=== PATIENT | female | born 1935 | race Caucasian/White ===

== ENCOUNTER 2016-10-15 14:37 | Outpatient (CLI) | payer MEDICARE | END 2016-10-15 14:38 | disposition home or self-care (01) | DX: Z12.31 Encounter for screening mammogram for malignant neoplasm of breast (principal); Z80.3 Family history of malignant neoplasm of breast ==

== ENCOUNTER 2016-12-03 08:12 | Outpatient (CLI) | payer MEDICARE | END 2016-12-03 08:13 | disposition home or self-care (01) | DX: E78.5 Hyperlipidemia, unspecified (principal); E03.9 Hypothyroidism, unspecified; D50.9 Iron deficiency anemia, unspecified ==

== ENCOUNTER 2017-02-23 11:17 | Outpatient (CLI) | payer MEDICARE ==
--- NOTE | 2017-02-23 18:24 | Ultrasound Report ---
EXAM: ANKLE-BRACHIAL INDEX. EXAM DATE: 02/23/2017 12:26 p.m. CLINICAL HISTORY: Left calf pain. COMPARISON: None. TECHNIQUE: Real time, Doppler ultrasound imaging of the lower extremities was performed. Selected sta tic images were submitted for interpretation. FINDINGS: RIGHT Brachial Systolic BP: 167/60 mmHg. Posterior Tibial Systolic BP: 138/84 mmHg. Anterior Tibial Systolic BP 164/45 mmHg. LEFT Brachial Systolic BP: 166/67 mmHg. Posterior Tibial Systolic BP: 149/80 mmHg. Anterior Tibial Systolic BP: 159/54 mmHg. IMPRESSION: Right ankle-brachial index is 0.98. Left ankle-brachial index is 0.95. Borderline abnormal bilateral DANA measurements. [facility] Referring Provider Line: [phone] SITE ID: [id number]
== END 2017-02-23 11:18 | disposition home or self-care (01) ==
LOC: DI 11:17
PROVIDERS: ATTEND Physician Assistant Medical
DX: M79.622 Pain in left upper arm (principal)
CPT/HCPCS: 93922

== ENCOUNTER 2018-04-07 08:06 | Outpatient (CLI) | payer MEDICARE ==
[2018-04-07 10:40] LABS: BASOPHILS # (AUTO) 0.1 10^3/uL (0.0-0.1); BASOPHILS % (AUTO) 1.1 %; EOSINOPHILS # (AUTO) 0.3 10^3/uL (0.0-0.7); EOSINOPHILS % (AUTO) 5.2 %; HGB - HEMOGLOBIN 10.6 g/dL (12.0-16.0); LYMPHOCYTES # (AUTO) 1.1 10^3/uL (1.5-3.5); LYMPHOCYTES % (AUTO) 19.1 %; MEAN CORPUSCULAR HEMOGLOBIN 31.1 pg (27.0-31.0); MEAN CORPUSCULAR HGB CONC 33.4 g/dL (32.0-36.0); MEAN CORPUSCULAR VOLUME 93.2 fL (81.0-99.0); MEAN PLATELET VOLUME 8.7 fL (7.9-10.8); MONOCYTES # (AUTO) 0.6 10^3/uL (0.0-1.0); MONOCYTES % (AUTO) 9.8 %; NEUTROPHILS # (AUTO) 3.8 10^3/uL (1.5-6.6); NEUTROPHILS % (AUTO) 64.8 %; PLT - PLATELET COUNT 257 10^3/uL (130-450); RED BLOOD COUNT 3.42 10^6/uL (4.20-5.40); WHITE BLOOD COUNT 5.8 x10^3/uL (4.8-10.8)
[2018-04-07 11:09] LABS: ALBUMIN 3.4 g/dL (3.2-5.5); ALBUMIN/GLOBULIN RATIO 0.9 (1.0-2.2); ALKALINE PHOSPHATASE 56 IU/L (42-121); ALT ALANINE AMINOTRANSFERASE 15 IU/L (10-60); AST ASPARTATE AMINOTRANSFERASE 20 IU/L (10-42); BILIRUBIN,TOTAL 0.5 mg/dL (0.2-1.0); BUN - BLOOD UREA NITROGEN 71 mg/dL (6-20); CALCIUM 9.5 mg/dL (8.5-10.3); CARBON DIOXIDE - CO2 22 mmol/L (21-32); CHLORIDE 104 mmol/L (101-111); CHOL/HDL RATIO 4.5 (<4.4); CHOLESTEROL 227 mg/dL; GFR - MDRD 24 (>89); GLUCOSE 95 mg/dL (70-100); HDL CHOLESTEROL 50 mg/dL; LDL CHOLESTEROL,CALCULATED 141 mg/dL; LDL/HDL RATIO 2.8 (<4.4); SODIUM 132 mmol/L (135-145); VLDL CHOLESTEROL 36 mg/dL
[2018-04-07 11:18] LABS: THYROID STIMULATING HORMONE 0.61 uIU/mL (0.34-5.60)
[2018-04-07 16:37] LABS: % IRON SATURATION 23 % (20-50); IRON 72 ug/dL (28-170); TOTAL IRON BINDING CAPACITY 316 ug/dL (250-450); TRANSFERRIN 226 mg/dL (192-382)
[2018-04-07 16:48] LABS: FERRITIN 77.2 ng/mL (11.0-306.8)
== END 2018-04-07 08:07 | disposition home or self-care (01) ==
LOC: LAB.F 08:06
PROVIDERS: ATTEND Physician Assistant Medical
DX: E78.5 Hyperlipidemia, unspecified (principal); E03.9 Hypothyroidism, unspecified; D50.9 Iron deficiency anemia, unspecified
CPT/HCPCS: 36415; 80053; 80061; 82728; 83540; 83721; 84443; 84466; 85025

== ENCOUNTER 2018-05-18 08:00 | Outpatient (CLI) | payer MEDICARE | END 2018-05-18 08:01 | disposition home or self-care (01) | LOC: LAB 08:00 | PROVIDERS: ATTEND Physician Assistant Medical | DX: D50.9 Iron deficiency anemia, unspecified (principal) ==

== ENCOUNTER 2018-05-19 08:00 | Outpatient (CLI) | payer MEDICARE | END 2018-05-19 08:01 | disposition home or self-care (01) | LOC: LAB 08:00 | PROVIDERS: ATTEND Physician Assistant Medical | DX: D50.9 Iron deficiency anemia, unspecified (principal) ==

== ENCOUNTER 2018-05-20 08:00 | Outpatient (CLI) | payer MEDICARE | END 2018-05-20 08:01 | disposition home or self-care (01) | LOC: LAB.R 08:00 | PROVIDERS: ATTEND Physician Assistant Medical | DX: D50.9 Iron deficiency anemia, unspecified (principal) | CPT/HCPCS: 82270 ==

== ENCOUNTER 2018-05-21 09:10 | Outpatient (CLI) | payer MEDICARE ==
[2018-05-21 12:21] LABS: BASOPHILS # (AUTO) 0.1 10^3/uL (0.0-0.1); EOSINOPHILS # (AUTO) 0.3 10^3/uL (0.0-0.7); EOSINOPHILS % (AUTO) 4.2 %; HGB - HEMOGLOBIN 10.2 g/dL (12.0-16.0); LYMPHOCYTES % (AUTO) 15.5 %; MEAN CORPUSCULAR HEMOGLOBIN 31.4 pg (27.0-31.0); MEAN CORPUSCULAR VOLUME 92.3 fL (81.0-99.0); MEAN PLATELET VOLUME 8.9 fL (7.9-10.8); MONOCYTES # (AUTO) 0.5 10^3/uL (0.0-1.0); MONOCYTES % (AUTO) 8.6 %; NEUTROPHILS # (AUTO) 4.4 10^3/uL (1.5-6.6); NEUTROPHILS % (AUTO) 70.7 %; PLT - PLATELET COUNT 241 10^3/uL (130-450); RED BLOOD COUNT 3.25 10^6/uL (4.20-5.40); RED CELL DISTRIBUTION WIDTH 13.2 % (12.0-15.0); WHITE BLOOD COUNT 6.2 x10^3/uL (4.8-10.8)
== END 2018-05-21 09:11 | disposition home or self-care (01) ==
LOC: LAB.WCP 09:10
PROVIDERS: ATTEND Physician Assistant Medical
DX: I10 Essential (primary) hypertension (principal); D50.9 Iron deficiency anemia, unspecified
CPT/HCPCS: 36415; 82088; 84244; 85025

== ENCOUNTER 2018-07-14 09:37 | Outpatient (CLI) | payer MEDICARE | END 2018-07-14 09:38 | disposition home or self-care (01) | LOC: LAB.F 09:37 | PROVIDERS: ATTEND Physician Assistant Medical | DX: E78.5 Hyperlipidemia, unspecified (principal); I10 Essential (primary) hypertension ==

== ENCOUNTER 2018-07-15 07:31 | Outpatient (CLI) | payer MEDICARE ==
[2018-07-15 11:32] LABS: CALCIUM 9.4 mg/dL (8.5-10.3); CREATININE 2.4 mg/dL (0.4-1.0); FERRITIN 79.3 ng/mL (11.0-306.8)
== END 2018-07-15 07:32 | disposition home or self-care (01) ==
LOC: LAB.F 07:31
PROVIDERS: ATTEND Physician Assistant Medical
DX: D50.9 Iron deficiency anemia, unspecified (principal)
CPT/HCPCS: 36415; 80048; 82607; 82728; 82746; 83540; 84466

== ENCOUNTER 2018-08-21 07:14 | Outpatient (CLI) | payer MEDICARE ==
[2018-08-21 12:04] LABS: HGB - HEMOGLOBIN 10.2 g/dL (12.0-16.0); MEAN CORPUSCULAR HEMOGLOBIN 31.3 pg (27.0-31.0); MEAN CORPUSCULAR VOLUME 91.9 fL (81.0-99.0); MEAN PLATELET VOLUME 8.1 fL (7.9-10.8); RED BLOOD COUNT 3.28 10^6/uL (4.20-5.40); RED CELL DISTRIBUTION WIDTH 13.3 % (12.0-15.0); WHITE BLOOD COUNT 8.5 x10^3/uL (4.8-10.8)
== END 2018-08-21 07:15 | disposition home or self-care (01) ==
LOC: LAB.F 07:14
PROVIDERS: ATTEND Physician Assistant Medical
DX: E78.5 Hyperlipidemia, unspecified (principal); D63.1 Anemia in chronic kidney disease; D70.9 Neutropenia, unspecified; R80.9 Proteinuria, unspecified
CPT/HCPCS: 36415; 82570; 84156; 85027

== ENCOUNTER 2018-09-09 14:38 | Outpatient (CLI) | payer MEDICARE ==
--- NOTE | 2018-09-10 15:02 | CT Report ---
Reason: ADRENAL NODULE Procedure Date: 09/09/2018 Accession Number: [id number] / [id number] Procedure: CT - Abdomen W/O CPT Code: FULL RESULT: EXAM: CT ABDOMEN EXAM DATE: 09/09/2018 02:59 PM. CLINICAL HISTORY: Adrenal nodule. High creatinine; unable to use IV contrast. COMPARISON: Abdomen 01/03/2009 9:53 AM, Abdomen 11/27/2014 11:30 AM. TECHNIQUE: Routine helical CT imaging was performed through the abdomen. IV contrast: 0 cc Enteric contrast: No. Reconstruction: Coronal and sagittal. In accordance with CT protocol optimization, one or more of the following dose reduction techniques were utilized for this exam: automated exposure control, adjustment of mA and/or KV based on patient size, or use of iterative reconstructive technique. FINDINGS: Lung Bases: Unremarkable. Liver: No focal hepatic abnormality noted on noncontrast images. Gallbladder/Bile Ducts: There is a dependent 8 mm radiodense stone near the gallbladder neck with smaller dependent stones; appearance is little changed from 2008. There is no wall thickening or pericholecystic fluid/inflammation. No biliary ductal dilatation. Spleen: Normal. Pancreas: Normal. Adrenal Glands: There is a stable 2 cm oval heterogeneous isodense and hypodense mass in the left adrenal gland measuring 2 cm in greatest extent. Hounsfield unit measurements vary between soft tissue and fat with lowest measurements -11.2. Right adrenal gland appears normal. Kidneys: Stable operative changes after right nephrectomy. No focal abnormalities of the left kidney. Peritoneal Cavity/Bowel: Normal. No free fluid, free air or adenopathy. No masses or acute inflammatory process. Appendix is not specifically identified. Vasculature: Atherosclerotic deposition without aneurysmal dilatation. Bones: Multilevel degenerative disk space narrowing and marginal osteophyte of the lumbar spine, commensurate with age. Other: None. IMPRESSION: 1. Stable fat-containing 2 cm left adrenal nodule consistent with adenoma. 2. Cholelithiasis without evidence of cholecystitis. 3. Stable right nephrectomy changes. [facility]
== END 2018-09-09 14:39 | disposition home or self-care (01) ==
LOC: DI 14:38
PROVIDERS: ATTEND Internal Medicine Nephrology
DX: E27.8 Other specified disorders of adrenal gland (principal); K80.20 Calculus of gallbladder without cholecystitis without obstruction; Z90.5 Acquired absence of kidney
CPT/HCPCS: 74150

== ENCOUNTER 2018-10-14 14:41 | Outpatient (CLI) | payer MEDICARE ==
[2018-10-14 18:40] LABS: CALCIUM 9.4 mg/dL (8.5-10.3); CREATININE 2.3 mg/dL (0.4-1.0); PHOSPHORUS 5.3 mg/dL (2.5-4.6)
== END 2018-10-14 14:42 | disposition home or self-care (01) ==
LOC: LAB.F 14:41
PROVIDERS: ATTEND Internal Medicine Nephrology
DX: N05.9 Unspecified nephritic syndrome with unspecified morphologic changes (principal); E83.30 Disorder of phosphorus metabolism, unspecified; N25.81 Secondary hyperparathyroidism of renal origin; R80.9 Proteinuria, unspecified; D47.2 Monoclonal gammopathy; I50.32 Chronic diastolic (congestive) heart failure
CPT/HCPCS: 36415; 80048; 81599; 83880; 83883; 83970; 84100; 84155; 84165

== ENCOUNTER 2018-12-05 15:18 | Outpatient (CLI) | payer MEDICARE ==
[2018-12-05 18:09] LABS: BASOPHILS % (AUTO) 0.7 %; EOSINOPHILS # (AUTO) 0.3 10^3/uL (0.0-0.7); EOSINOPHILS % (AUTO) 4.3 %; HGB - HEMOGLOBIN 9.4 g/dL (12.0-16.0); LYMPHOCYTES % (AUTO) 17.3 %; MEAN CORPUSCULAR HEMOGLOBIN 31.4 pg (27.0-31.0); MEAN CORPUSCULAR HGB CONC 33.2 g/dL (32.0-36.0); MEAN CORPUSCULAR VOLUME 94.3 fL (81.0-99.0); MEAN PLATELET VOLUME 8.8 fL (7.9-10.8); MONOCYTES # (AUTO) 0.6 10^3/uL (0.0-1.0); MONOCYTES % (AUTO) 10.3 %; NEUTROPHILS # (AUTO) 3.9 10^3/uL (1.5-6.6); NEUTROPHILS % (AUTO) 67.4 %; PLT - PLATELET COUNT 222 10^3/uL (130-450); RED BLOOD COUNT 2.99 10^6/uL (4.20-5.40); RED CELL DISTRIBUTION WIDTH 13.4 % (12.0-15.0); WHITE BLOOD COUNT 5.8 x10^3/uL (4.8-10.8)
[2018-12-05 18:49] LABS: FERRITIN 1046.3 ng/mL (11.0-306.8)
[2018-12-05 19:19] LABS: CALCIUM 8.9 mg/dL (8.5-10.3); CREATININE 2.4 mg/dL (0.4-1.0)
== END 2018-12-05 15:19 | disposition home or self-care (01) ==
LOC: LAB.F 15:18
PROVIDERS: ATTEND Internal Medicine Nephrology
DX: N05.9 Unspecified nephritic syndrome with unspecified morphologic changes (principal); D70.9 Neutropenia, unspecified; D63.1 Anemia in chronic kidney disease; D50.0 Iron deficiency anemia secondary to blood loss (chronic); D64.9 Anemia, unspecified; D47.2 Monoclonal gammopathy
CPT/HCPCS: 36415; 80048; 81599; 82607; 82728; 82746; 83540; 84466; 85025

== ENCOUNTER 2018-12-08 13:24 | Outpatient (CLI) | payer MEDICARE | END 2018-12-08 13:25 | disposition home or self-care (01) | LOC: LAB.F 13:24 | PROVIDERS: ATTEND Internal Medicine Nephrology | DX: D47.2 Monoclonal gammopathy (principal) | CPT/HCPCS: 36415; 81599; 82784 ==

== ENCOUNTER 2019-01-06 15:10 | Outpatient (CLI) | payer MEDICARE ==
[2019-01-06 18:25] LABS: CALCIUM 8.9 mg/dL (8.5-10.3); CREATININE 2.3 mg/dL (0.4-1.0)
[2019-01-08 20:01] LABS: ANA SCREEN POSITIVE (NEGATIVE)
[2019-01-08 21:47] LABS: ANCA SCREEN NEGATIVE (NEGATIVE)
[2019-01-08 23:31] LABS: GLOM BASEMENT MEMBRANE AB IGG <1.0 AI (<1.0)
== END 2019-01-06 15:11 | disposition home or self-care (01) ==
LOC: LAB.F 15:10
PROVIDERS: ATTEND Internal Medicine Nephrology
DX: L93.2 Other local lupus erythematosus (principal); M31.30 Wegener's granulomatosis without renal involvement; N00.9 Acute nephritic syndrome with unspecified morphologic changes; I50.32 Chronic diastolic (congestive) heart failure; N05.9 Unspecified nephritic syndrome with unspecified morphologic changes
CPT/HCPCS: 36415; 80048; 83520; 83880; 86021; 86038

== ENCOUNTER 2019-01-14 08:00 | Outpatient (CLI) | payer MEDICARE ==
[2019-01-14 19:28] LABS: H. PYLORIS ANTIGEN STL NEGATIVE (Negative)
== END 2019-01-14 23:59 | disposition home or self-care (01) ==
LOC: LAB.R 08:00
PROVIDERS: ATTEND Physician Assistant Medical
DX: K52.9 Noninfective gastroenteritis and colitis, unspecified (principal)
CPT/HCPCS: 81599; 83630; 87045; 87046; 87177; 87209; 87329; 87338; 87493

== ENCOUNTER 2019-03-17 08:00 | Outpatient (CLI) | payer MEDICARE ==
[2019-03-17 18:19] LABS: CALCIUM 9.2 mg/dL (8.5-10.3); CREATININE 2.7 mg/dL (0.4-1.0)
[2019-03-17 18:31] LABS: CREATININE,URINE 64.8 mg/dL; PROTEIN/CREATININE RATIO,URINE 2.4 (<=0.2)
[2019-03-19 12:48] LABS: COMPLEMENT COMPONENT C3C 124 mg/dL; COMPLEMENT COMPONENT C4C 32 mg/dL
[2019-03-19 19:07] LABS: ANA SCREEN POSITIVE (NEGATIVE)
== END 2019-03-17 23:59 | disposition home or self-care (01) ==
LOC: LAB.F 08:00
PROVIDERS: ATTEND Internal Medicine Nephrology
DX: N05.9 Unspecified nephritic syndrome with unspecified morphologic changes (principal); L93.2 Other local lupus erythematosus; I50.32 Chronic diastolic (congestive) heart failure; D89.89 Other specified disorders involving the immune mechanism, not elsewhere classified; D80.9 Immunodeficiency with predominantly antibody defects, unspecified
CPT/HCPCS: 36415; 80048; 82570; 83880; 84156; 86038; 86160

== ENCOUNTER 2019-03-27 12:19 | Outpatient (CLI) | payer MEDICARE | END 2019-03-27 12:20 | disposition home or self-care (01) | LOC: LAB 12:19 | PROVIDERS: ATTEND Internal Medicine Nephrology | DX: M31.30 Wegener's granulomatosis without renal involvement (principal) | CPT/HCPCS: 36415; 81599; 86021 ==

== ENCOUNTER 2019-04-24 | Outpatient (CLI) | payer MEDICARE | END 2019-04-24 10:51 | disposition home or self-care (01) ==

== ENCOUNTER 2019-06-02 13:01 | Outpatient (CLI) | payer MEDICARE ==
[2019-06-02 18:44] LABS: CALCIUM 9.4 mg/dL (8.5-10.3)
== END 2019-06-02 13:02 | disposition home or self-care (01) ==
LOC: LAB.S 13:01
PROVIDERS: ATTEND Internal Medicine Nephrology
DX: N05.9 Unspecified nephritic syndrome with unspecified morphologic changes (principal); D70.9 Neutropenia, unspecified
CPT/HCPCS: 36415; 80048; 81599

== ENCOUNTER 2019-06-04 08:59 | Outpatient (CLI) | payer MEDICARE | END 2019-06-04 09:00 | disposition home or self-care (01) | LOC: LAB.S 08:59 | PROVIDERS: ATTEND Internal Medicine Nephrology | DX: N05.9 Unspecified nephritic syndrome with unspecified morphologic changes (principal); D70.9 Neutropenia, unspecified | CPT/HCPCS: 83036; 85018 ==

== ENCOUNTER 2019-07-02 11:24 | Outpatient (CLI) | payer MEDICARE ==
[2019-07-02 18:01] LABS: CALCIUM 8.3 mg/dL (8.5-10.3); CREATININE 3.7 mg/dL (0.4-1.0)
== END 2019-07-02 11:25 | disposition home or self-care (01) ==
LOC: LAB.S 11:24
PROVIDERS: ATTEND Internal Medicine Nephrology
DX: N05.9 Unspecified nephritic syndrome with unspecified morphologic changes (principal); D70.9 Neutropenia, unspecified
CPT/HCPCS: 36415; 80048; 83036; 85018

== ENCOUNTER 2019-07-10 13:26 | Outpatient (CLI) | payer MEDICARE ==
--- NOTE | 2019-07-10 16:12 | XRAY Report ---
Reason: DYSPNEA Procedure Date: 07/10/2019 Accession Number: [id number] / [id number] Procedure: XR - Chest 2 View X-Ray CPT Code: 14166 FULL RESULT: EXAM: CHEST RADIOGRAPHY EXAM DATE: 07/10/2019 02:28 PM. CLINICAL HISTORY: Dyspnea. COMPARISON: XR CHEST PA AND LAT 05/30/2007 10:24 AM. TECHNIQUE: 2 views. FINDINGS: Lungs/Pleura: Bilateral airway thickening can be seen in the setting of bronchiolitis or reactive airways disease. No focal lung parenchymal consolidation identified to suggest superimposed pneumonia. Mediastinum: Interval progression of calcifications of the aorta and interval development of mild cardiomegaly. Other: None. IMPRESSION: Interval development of bronchial wall thickening predominantly centrally. Interval development of mild cardiomegaly. [facility]
[2019-07-11 11:01] LABS: HEPATITIS B SURFACE ANTIGEN NON-REACTIVE (NON-REACTIVE)
[2019-07-11 11:33] LABS: HEPATITIS C ANTIBODY NON-REACTIVE (NON-REACTIVE)
== END 2019-07-10 13:27 | disposition home or self-care (01) ==
LOC: LAB 13:26 → DI 13:27
PROVIDERS: ATTEND Internal Medicine Nephrology
DX: R91.8 Other nonspecific abnormal finding of lung field (principal); I51.7 Cardiomegaly; B19.10 Unspecified viral hepatitis B without hepatic coma; B17.10 Acute hepatitis C without hepatic coma
CPT/HCPCS: 36415; 71046; 86317; 86704; 86803; 87340

== ENCOUNTER 2020-01-03 12:07 | Outpatient (CLI) | payer MEDICARE, OTHER | END 2020-01-03 23:59 | disposition short-term general hospital (02) | LOC: EMS 12:07 | PROVIDERS: ATTEND Surgery | DX: M25.551 Pain in right hip (principal); W18.00XA Striking against unspecified object with subsequent fall, initial encounter; Y92.009 Unspecified place in unspecified non-institutional (private) residence as the place of occurrence of the external cause | CPT/HCPCS: A0425; A0429 ==

== ENCOUNTER 2020-04-07 07:45 | Outpatient (CLI) | payer MEDICARE, OTHER ==
[2020-04-07 08:17] LABS: CHOLESTEROL 207 mg/dL; HDL CHOLESTEROL 52 mg/dL; LDL CHOLESTEROL,CALCULATED 131 mg/dL; LDL/HDL RATIO 2.5 (<4.4); VLDL CHOLESTEROL 24 mg/dL
== END 2020-04-07 07:46 | disposition home or self-care (01) ==
LOC: LAB 07:45
PROVIDERS: ATTEND Physician Assistant Medical
DX: E78.5 Hyperlipidemia, unspecified (principal); E03.9 Hypothyroidism, unspecified
CPT/HCPCS: 36415; 80061; 83721; 84443

== ENCOUNTER 2020-05-20 09:34 | Outpatient (CLI) | payer MEDICARE, OTHER ==
--- NOTE | 2020-05-20 16:33 | DEXA Report ---
PROCEDURE: Dexa Spine and/or Hip INDICATIONS: POST MENOPAUSAL TECHNIQUE: Dual energy x-ray absorptiometry (DXA) was performed on a [employer] System. Regions measur ed are the AP Spine, femoral neck, and if needed forearm. COMPARISON: None. FINDINGS: Lumbar Spine: Bone Mineral Density 1.246 g/cm/cm,T score 0.6, normal Left Hip: Bone Mineral Density 0.690 g/cm/cm,T score -2.5, osteoporosis Left Femoral Neck: Bone Mineral Density 0.786 g/cm/cm, T score -1.8, osteopenia (T score greater or equal to -1.0: NORMAL) (T score from -1.1 to -2.4: OSTEOPENIA) (T score less than or equal to -2.5 to: OSTEOPOROSIS) Impression: Osteoporosis. Patients with diagnosis of osteoporosis or osteopenia should have regular bone mineral density assess ment. For those eligible for Medicare, routine testing is allowed once every 2 years. Testing frequ ency can be increased for patients who have rapidly progressing disease or for those who are receivin g medical therapy to restore bone mass. Reviewed by: Suyapa Lopez MD, PhD on 05/20/2020 4:32 PM PDT Approved by: Suyapa Lopez MD, PhD on 05/20/2020 4:32 PM PDT Station ID: [id number]
== END 2020-05-20 09:35 | disposition home or self-care (01) ==
LOC: DI 09:34
PROVIDERS: ATTEND Physician Assistant Medical
DX: M81.0 Age-related osteoporosis without current pathological fracture (principal); Z78.0 Asymptomatic menopausal state
CPT/HCPCS: 77080

== ENCOUNTER 2021-03-20 08:05 | Outpatient (CLI) | payer MEDICARE, OTHER ==
[2021-03-20 16:13] LABS: CHOL/HDL RATIO 3.6 (<4.4); CHOLESTEROL 167 mg/dL; HDL CHOLESTEROL 46 mg/dL; LDL CHOLESTEROL,CALCULATED 101 mg/dL; LDL/HDL RATIO 2.2 (<4.4); TRIGLYCERIDES 101 mg/dL; VLDL CHOLESTEROL 20 mg/dL
[2021-03-20 16:26] LABS: THYROID STIMULATING HORMONE 1.27 uIU/mL (0.34-5.60)
== END 2021-03-20 08:06 | disposition home or self-care (01) ==
LOC: LAB.S 08:05
PROVIDERS: ATTEND Physician Assistant Medical
DX: E78.5 Hyperlipidemia, unspecified (principal); E03.9 Hypothyroidism, unspecified
CPT/HCPCS: 36415; 80061; 83721; 84443

== ENCOUNTER 2021-03-21 08:00 | Outpatient (CLI) | payer MEDICARE, OTHER | END 2021-03-21 23:59 | disposition home or self-care (01) | LOC: LAB.S 08:00 | PROVIDERS: ATTEND Physician Assistant | DX: N39.0 Urinary tract infection, site not specified (principal) | CPT/HCPCS: 87086 ==

== ENCOUNTER 2021-07-24 09:44 | Outpatient (CLI) | payer MEDICARE, OTHER ==
--- NOTE | 2021-07-24 15:57 | DEXA Report ---
PROCEDURE: Dexa Spine and/or Hip INDICATIONS: OSTEOPOROSIS, POST MENOPAUSAL TECHNIQUE: Dual energy x-ray absorptiometry (DXA) was performed on a [employer] System. Regions measur ed are the AP Spine, femoral neck, and if needed forearm. COMPARISON: None. FINDINGS: Lumbar Spine: Bone Mineral Density 1.139 g/cm/cm,T score -0.3, normal Left Hip: Bone Mineral Density 0.661 g/cm/cm,T score -2.8, osteoporosis Left Femoral Neck: Bone Mineral Density 0.662 g/cm/cm, T score -2.7, osteoporosis (T score greater or equal to -1.0: NORMAL) (T score from -1.1 to -2.4: OSTEOPENIA) (T score less than or equal to -2.5 to: OSTEOPOROSIS) Impression: Osteoporosis within the left hip and femoral neck. Patients with diagnosis of osteoporosis or osteopenia should have regular bone mineral density assess ment. For those eligible for Medicare, routine testing is allowed once every 2 years. Testing frequ ency can be increased for patients who have rapidly progressing disease or for those who are receivin g medical therapy to restore bone mass. Reviewed by: Azul Barron MD on 07/24/2021 3:56 PM PDT Approved by: Azul Barron MD on 07/24/2021 3:56 PM PDT Station ID: [id number]
== END 2021-07-24 09:45 | disposition home or self-care (01) ==
LOC: DI 09:44
PROVIDERS: ATTEND Physician Assistant Medical
DX: M81.0 Age-related osteoporosis without current pathological fracture (principal); Z78.0 Asymptomatic menopausal state

== ENCOUNTER 2021-07-31 13:54 | Outpatient (CLI) | payer MEDICARE, OTHER ==
--- NOTE | 2021-07-31 15:58 | XRAY Report ---
PROCEDURE: Chest 2 View X-Ray INDICATIONS: DYSPNEA TECHNIQUE: 2 view(s) of the chest. COMPARISON: None. FINDINGS: Surgical changes and devices: None. Lungs and pleura: There is trace blunting of the costophrenic angles, unchanged. Mediastinum: Mediastinal contours are normal. Heart size is enlarged. Bones and chest wall: No suspicious bony abnormalities. Soft tissues appear unremarkable. IMPRESSION: Cardiomegaly with trace blunting of the costophrenic angles likely related to scarring. Reviewed by: Azul Barron MD on 07/31/2021 3:57 PM PST Approved by: Azul Barron MD on 07/31/2021 3:57 PM PST Station ID: [id number]
== END 2021-07-31 13:55 | disposition home or self-care (01) ==
LOC: DI 13:54
PROVIDERS: ATTEND Internal Medicine Nephrology
DX: R06.00 Dyspnea, unspecified (principal); I51.7 Cardiomegaly

== ENCOUNTER 2022-08-13 12:26 | Outpatient (CLI) | payer MEDICARE, OTHER ==
--- NOTE | 2022-08-13 15:37 | XRAY Report ---
PROCEDURE: Chest 2 View X-Ray INDICATIONS: PLEURAL EFFUSION TECHNIQUE: 2 views of the chest were acquired. COMPARISON: 06/08/2022 FINDINGS: Surgical changes and devices: Surgical clips in the right upper quadrant of the abdomen.. Lungs and pleura: No pleural effusions or pneumothorax. Lungs demonstrate diffuse coarse interstiti al markings, chronic. No dense consolidations. Mediastinum: Mediastinal contours are normal. Heart size is mildly enlarged, stable. No significant central vascular congestion. Bones and chest wall: No suspicious bony abnormalities. Soft tissues appear unremarkable. IMPRESSION: 1. Diffuse chronic interstitial thickening suggesting chronic edema or other interstitial lung diseas e. 2. No evidence of significant pleural effusion. 3. Stable cardiomegaly without radiographic evidence of acute CHF. Reviewed by: Norah Ludwig MD on 08/13/2022 3:36 PM PST Approved by: Norah Ludwig MD on 08/13/2022 3:36 PM PST Station ID: [id number]
== END 2022-08-13 12:27 | disposition home or self-care (01) ==
LOC: DI 12:26 → DI.S 12:27
PROVIDERS: ATTEND Internal Medicine Cardiovascular Disease
DX: I51.7 Cardiomegaly (principal); R91.8 Other nonspecific abnormal finding of lung field